=== PATIENT | female | born 1980 | race Caucasian/White ===

== ENCOUNTER 2022-06-19 15:00 | Emergency (ER) | payer OTHER, SELFPAY ==
[2022-06-19] VITALS (13 sets, daily range): BP systolic 124–142; BP diastolic 72–93; PULSE 90–103; RESP 18–30; TEMP 36.9; O2SAT 97–100; BMI 38.6
[2022-06-19 15:53] LABS: Add Manual Diff / Slide Review NO; Basophils Absolute Auto 100 /uL (0-100); Basophils Percent Auto 0.7 % (0-2); Eosinophils Absolute Auto 0 /uL (0-450); Hematocrit 44.5 % (36-46); Hemoglobin 15.3 g/dL (12.0-16.0); Lymphocytes Absolute Auto 2600 /uL (1100-4500); Lymphocytes Percent Auto 26.4 % (25-40); Mean Corpuscular HGB Conc 34.4 % (30-36); Mean Corpuscular Hemoglobin 28.6 PG (26-34); Mean Corpuscular Volume 83.1 fL (80-100); Monocytes Absolute Auto 700 /uL (0-900); Monocytes Percent Auto 7.2 % (3-14); Neutrophils Absolute Auto 6500 /uL (1500-7000); Neutrophils Percent Auto 65.7 % (50-75); Platelet Count 323 X10^3/uL (150-400); Red Blood Cell Count 5.35 X10^6/uL (4.0-5.2); Red Cell Distribution Width 13.4 % (11.6-14.8); White Blood Cell Count 9.9 X10^3/uL (4.5-11.0)
[2022-06-19 15:58] LABS: Bacteria Urine Moderate (10-30); Culture Indicated Urine Cult Not Indicated; RBC Urine None Seen (0-5/HPF); Squamous Epithelial Cell Urine 1-5 /HPF (0-5/HPF); WBC Urine 0-1/HPF (0-5/HPF)
[2022-06-19 16:08] LABS: Alanine Aminotransferase 21 IU/L (<35); Alkaline Phosphatase 128 U/L (38-126); Aspartate Aminotransferase 22 IU/L (14-36); BUN Creatinine Ratio 16.7 (6-22); Bilirubin Total 0.2 mg/dL (0.2-1.3); Blood Urea Nitrogen 13 mg/dL (7-17); Calcium 8.9 mg/dL (8.4-10.2); Carbon Dioxide 27 mmol/L (22-32); Chloride 104 mmol/L (98-107); Estimated Glomerular Filt Rate > 60 mL/min (>60); Globulin 3.9 g/dL (1.7-4.1); Glucose 99 mg/dL (70-100); HEMOLYSIS < 15 (0-50); Lipase 169 U/L (23-300); Potassium 4.7 mmol/L (3.4-5.1); Sodium 139 mmol/L (137-145); Total Protein 7.9 g/dL (6.3-8.2)
[2022-06-19] MEDS: ONDANSETRON 4 MG/2 ML INJ IV (17:58)
[2022-06-19] MEDS: KETOROLAC 30 MG/ML VIAL 15 MG IV (17:58)
--- NOTE | 2022-06-19 18:01 | DI.CT.S_ITS ---
PROCEDURE: CT ANGIO CHEST PE PROTOCOL INDICATIONS: concern for PE, LUQ PAIN TECHNIQUE: After the administration of intravenous contrast, 2 mm thick sections acquired from the pulmonary apices to the posterior costophrenic angles. 3-dimensional maximum intensity projection (MIP) coronal and sagittal reformats were then acquired through the thorax. For radiation dose reduction, the following was used: automated exposure control, adjustment of mA and/or kV according to patient size. COMPARISON: None. FINDINGS: Pulmonary arteries: Pulmonary arteries are normal in size, and demonstrate no intraluminal filling defects to suggest central pulmonary embolism. Lungs and pleura: Lungs are clear. No pleural effusions or pneumothorax. Mediastinum: no pericardial effusion. No mediastinal or hilar adenopathy. Thoracic aorta is normal in caliber and enhancement. Esophagus is normal in caliber Bones and chest wall: Multilevel degenerative change of the visualized spine. No axillary or supraclavicular adenopathy. Abdomen: Cholelithiasis IMPRESSION: No pulmonary embolism visualized. Dictated by: Hugo Valdes M.D. on 06/19/2022 at 19:45 Approved by: Hugo Valdes M.D. on 06/19/2022 at 19:50
--- NOTE | 2022-06-19 18:07 | DI.CT.S_ITS ---
PROCEDURE: CT ABDOMEN PELVIS W CON INDICATIONS: luq TECHNIQUE: After the administration of intravenous contrast, axial sections acquired from the lung bases to the pubic symphysis. Coronal and sagittal reformats were performed. For radiation dose reduction, the following was used: automated exposure control, adjustment of mA and/or kV according to patient size. COMPARISON: [facility], CT, CT KUB, 01/30/2018, 14:10. FINDINGS: Lung bases: No pleural effusion ABDOMEN: Liver: Unremarkable. Gallbladder: Multiple gallstones are present Biliary ducts: Unremarkable. Pancreas: Unremarkable. Spleen: Unremarkable. Adrenal Glands: Unremarkable. Kidneys and Ureters: Unremarkable. Stomach and Bowel: No bowel obstruction. No evidence of acute appendicitis Peritoneum: No abnormal intraperitoneal fluid. No free air. . Abdominal Nodes: No retroperitoneal or mesenteric adenopathy by size criteria. Vessels: Aorta and inferior vena cava are normal in size. PELVIS: Pelvic Organs: Unremarkable. Bladder: Unremarkable. Pelvic Nodes: No enlarged lymph nodes. Bones: Multilevel degenerative change of the visualized spine. IMPRESSION: Cholelithiasis. Dictated by: Hugo Valdes M.D. on 06/19/2022 at 19:40 Approved by: Hugo Valdes M.D. on 06/19/2022 at 19:44
--- NOTE | 2022-06-19 18:49 | ED.ABDPAIN ---
HPI - Abdominal Pain <Kings Alcantara PA-C - Last Filed: 06/20/22 20:54> General Chief Complaint: Abdominal Pain Stated Complaint: severe pain lt side of abdomen Time Seen by Provider: 06/19/22 17:31 Source: patient Mode of arrival: Ambulatory History of Present Illness HPI narrative: 42-year-old female with no reported past medical history presents to the ED with left upper abdominal and back pain for 10 days. Patient endorses that the pain worsens with movement. Pain is not inspiration. Pain is not aggravated by eating. Patient denies fever, chills, chest pain, shortness of breath, nausea, vomiting, dysuria, lightheadedness, dizziness, syncope. Patient denies history of gallstones. Endorses prior history of nephrolithiasis. Related Data Allergies Allergy/AdvReac Type Severity Reaction Status Date / Time No Known Drug Allergies Allergy Verified 06/19/22 15:11 Review of Systems <Kings Alcantara PA-C - Last Filed: 06/20/22 20:54> Review of Systems ROS Unobtainable: All systems reviewed & are unremarkable except as noted in HPI and below Constitutional Constitutional: Denies chills, Denies fatigue, Denies fever(s), Denies frequent falls, Denies lethargy and Denies weakness Eyes Eyes: Denies change in vision, Denies eye discharge, Denies irritation and Denies loss of vision ENT Ears, Nose, Mouth, and Throat: Denies change in voice, Denies dizziness, Denies neck pain, Denies sore throat and Denies throat swelling Cardiovascular Cardiovascular: Denies chest pain, Denies irregular heart rhythm, Denies lightheadedness, Denies palpitations, Denies dyspnea, Denies dyspnea on exertion and Denies orthopnea Respiratory Respiratory: Denies cough, Denies dyspnea, Denies dyspnea on exertion and Denies wheezing Gastrointestinal Gastrointestinal: Reports abdominal pain, Denies change in bowel habits, Denies diarrhea, Denies nausea and Denies vomiting Genitourinary Genitourinary: Denies hematuria, Denies flank pain, Denies urinary incontinence and Denies urinary urgency Musculoskeletal Musculoskeletal: Reports back pain, Denies muscle weakness, Denies neck pain, Denies numbness and Denies tingling Integumentary/Breasts Skin/Breast: Denies pruritus, Denies erythema, Denies rash and Denies wounds Neurologic Neurologic: Denies behavioral changes, Denies confusion, Denies dizziness, Denies frequent falls, Denies loss of vision, Denies numbness, Denies tingling and Denies weakness Psychiatric Psychiatric: Denies anxiety, Denies behavioral changes, Denies confusion, Denies depression, Denies homicidal ideation and Denies suicidal ideation Endocrine Endocrine: Denies fatigue, Denies flushing and Denies palpitations Hematologic/Lymphatic Hematologic/Lymphatic: Denies easy bruising Allergic/Immunologic Allergic/Immunologic: Denies urticaria, Denies throat swelling and Denies wheezing Patient History <Kings Alcantara PA-C - Last Filed: 06/20/22 20:54> Social History Smoking Status: Never smoker Smoking Status: Never smoker alcohol intake frequency: holidays/special occasions only Substance Use Type: does not use Exam <Kings Alcantara PA-C - Last Filed: 06/20/22 20:54> Narrative Exam Narrative: Const General:?cooperative, healthy appearing and comfortable [facility] Head:?normal to inspection Ears:?hearing grossly normal bilaterally Nose:?external nose normal Face and sinus:?normal facial exam and sinuses nontender Mouth:?oral mucosae normal Throat:?posterior oropharynx normal Eyes General:?appearance normal, both eyes and all related structures Neck Neck:?normal visual inspection and no lymphadenopathy noted Resp Effort & Inspection:?normal respiratory effort Auscultation:?clear to auscultation bilaterally Cardio Rate:?regular rate Rhythm:?regular rhythm GI There is tenderness to palpation of lateral left upper quadrant. Physical exam is more consistent with musculoskeletal sprain/strain. Abdomen is soft, nondistended. Neuro General:?patient alert, patient awake and patient oriented x3 Initial Vital Signs Initial Vital Signs: Vital Signs Temperature 98.4 F 06/19/22 15:11 Pulse Rate 90 06/19/22 15:11 Respiratory Rate 18 06/19/22 15:11 Blood Pressure 133/87 06/19/22 15:11 Pulse Oximetry 100 06/19/22 15:11 Oxygen Delivery Method Room Air 06/19/22 15:11 <Daniel Wilder DO - Last Filed: 06/22/22 18:01> Initial Vital Signs Initial Vital Signs: Vital Signs Temperature 98.4 F 06/19/22 15:11 Pulse Rate 90 06/19/22 15:11 Respiratory Rate 18 06/19/22 15:11 Blood Pressure 133/87 06/19/22 15:11 Pulse Oximetry 100 06/19/22 15:11 Oxygen Delivery Method Room Air 06/19/22 15:11 Course <Kings Alcantara PA-C - Last Filed: 06/20/22 20:54> Orders Ordered: Discontinued Medications Ketorolac Tromethamine (Ketorolac 30 Mg/Ml Vial) 15 mg IV NOW ONE Stop: 06/19/22 17:50 Last Admin: 06/19/22 17:58 Dose: 15 mg Documented By: GENNY Ondansetron HCl (Ondansetron 4 Mg Odt) 4 mg PO NOW PRN PRN Reason: Nausea And Vomiting Ondansetron HCl (Ondansetron 4 Mg/2 Ml Inj) 4 mg IV NOW PRN PRN Reason: Nausea And Vomiting Last Admin: 06/19/22 17:58 Dose: 4 mg Documented By: GENNY Vital Signs Vital signs: Vital Signs - 8 hr 06/19/22 15:11 06/19/22 17:36 06/19/22 17:37 Temperature 98.4 F Pulse Rate 90 101 H Respiratory Rate 18 22 Blood Pressure 133/87 124/72 Pulse Oximetry 100 100 Oxygen Delivery Method Room Air 06/19/22 17:37 06/19/22 17:45 06/19/22 17:45 Temperature Pulse Rate 103 H 102 H Respiratory Rate 24 23 Blood Pressure 142/93 H Pulse Oximetry 100 100 Oxygen Delivery Method 06/19/22 18:00 06/19/22 18:00 06/19/22 18:01 Temperature Pulse Rate 102 H 97 H Respiratory Rate 23 24 Blood Pressure 133/85 Pulse Oximetry 99 99 Oxygen Delivery Method 06/19/22 18:01 06/19/22 18:15 06/19/22 18:15 Temperature Pulse Rate 101 H Respiratory Rate 24 Blood Pressure 126/79 127/82 Pulse Oximetry 97 Oxygen Delivery Method 06/19/22 18:39 Temperature Pulse Rate 99 H Respiratory Rate 23 Blood Pressure Pulse Oximetry 99 Oxygen Delivery Method <Daniel Wilder DO - Last Filed: 06/22/22 18:01> Orders Ordered: Discontinued Medications Ketorolac Tromethamine (Ketorolac 30 Mg/Ml Vial) 15 mg IV NOW ONE Stop: 06/19/22 17:50 Last Admin: 06/19/22 17:58 Dose: 15 mg Documented By: GENNY Ondansetron HCl (Ondansetron 4 Mg Odt) 4 mg PO NOW PRN PRN Reason: Nausea And Vomiting Ondansetron HCl (Ondansetron 4 Mg/2 Ml Inj) 4 mg IV NOW PRN PRN Reason: Nausea And Vomiting Last Admin: 06/19/22 17:58 Dose: 4 mg Documented By: GENNY Vital Signs Vital signs: Vital Signs - 8 hr 06/19/22 15:11 06/19/22 17:36 06/19/22 17:37 Temperature 98.4 F Pulse Rate 90 101 H Respiratory Rate 18 22 Blood Pressure 133/87 124/72 Pulse Oximetry 100 100 Oxygen Delivery Method Room Air 06/19/22 17:37 06/19/22 17:45 06/19/22 17:45 Temperature Pulse Rate 103 H 102 H Respiratory Rate 24 23 Blood Pressure 142/93 H Pulse Oximetry 100 100 Oxygen Delivery Method 06/19/22 18:00 06/19/22 18:00 06/19/22 18:01 Temperature Pulse Rate 102 H 97 H Respiratory Rate 23 24 Blood Pressure 133/85 Pulse Oximetry 99 99 Oxygen Delivery Method 06/19/22 18:01 06/19/22 18:15 06/19/22 18:15 Temperature Pulse Rate 101 H Respiratory Rate 24 Blood Pressure 126/79 127/82 Pulse Oximetry 97 Oxygen Delivery Method 06/19/22 18:39 Temperature Pulse Rate 99 H Respiratory Rate 23 Blood Pressure Pulse Oximetry 99 Oxygen Delivery Method MDM - Abdominal Pain <Hyma OSMAR Alcantara - Last Filed: 06/20/22 20:54> Lab Data 06/19/22 15:30 06/19/22 15:30 Labs: Lab Results 06/19/22 06/19/22 06/19/22 Range/Units 15:20 15:30 15:30 WBC 9.9 (4.5-11.0) X10^3/uL RBC 5.35 H (4.0-5.2) X10^6/uL Hgb 15.3 (12.0-16.0) g/dL Hct 44.5 (36-46) % MCV 83.1 (80-100) fL MCH 28.6 (26-34) PG MCHC 34.4 (30-36) % RDW 13.4 (11.6-14.8) % Plt Count 323 (150-400) X10^3/uL Neut % (Auto) 65.7 (50-75) % Lymph % (Auto) 26.4 (25-40) % [place] % (Auto) 7.2 (3-14) % Eos % (Auto) 0.0 L (2-4) % Baso % (Auto) 0.7 (0-2) % Neut # (Auto) 6500 (4367-3132) /uL Lymph # (Auto) 2600 (2819-9588) /uL [place] # (Auto) 700 (0-900) /uL Eos # (Auto) 0 (0-450) /uL Baso # (Auto) 100 (0-100) /uL Sodium 139 (137-145) mmol/L Potassium 4.7 (3.4-5.1) mmol/L Chloride 104 (98-107) mmol/L Carbon Dioxide 27 (22-32) mmol/L BUN 13 (7-17) mg/dL Creatinine 0.78 (0.52-1.04) mg/dL Estimated GFR > 60 (>60) mL/min BUN/Creatinine Ratio 16.7 (6-22) Glucose 99 (70-100) mg/dL Calcium 8.9 (8.4-10.2) mg/dL Total Bilirubin 0.2 (0.2-1.3) mg/dL AST 22 (14-36) IU/L ALT 21 (<35) IU/L Alkaline Phosphatase 128 H (38-126) U/L Total Protein 7.9 (6.3-8.2) g/dL Albumin 4.0 (3.5-5.0) g/dL Globulin 3.9 (1.7-4.1) g/dL Albumin/Globulin Ratio 1.0 (1.0-2.8) Lipase 169 (23-300) U/L Urine RBC None seen (0-5/HPF) Urine WBC 0-1/hpf (0-5/HPF) Ur Squamous Epith Cells 1-5 /hpf (0-5/HPF) Urine Bacteria Moderate (10-30) H (None) Ur Culture Indicated? Cult not indicated Point of care testing: Point of Care Testing Test Results Negative Urine Dip Bedside Urine Glucose Negative Bedside Urine Bilirubin - Negative Bedside Urine Ketone - Negative Urine Specific [place] 1.015 Bedside Urine Occult Blood +/- Bedside Urine pH 6.5 Bedside Urine Protein - Negative Bedside Urine Urobilinogen - Negative Bedside Urine Nitrite - Negative Bedside Urine Leukocytes - Negative Esterase MDM Narrative Medical decision making narrative: 42-year-old female with no reported past medical history presents to the ED with left upper abdominal and back pain for 10 days. Concern for intra-abdominal pathology versus UTI versus PE. Obtain labs, UA, CT abdomen pelvis, CT PE. Workup was largely unremarkable. CT abdomen pelvis shows some cholelithiasis without cholecystitis. CT PE negative for PE. Labs within normal limits. UA without UTI. Discussed findings with patient. Patient states that her symptoms improved with ketorolac. Patient's symptoms likely due to musculoskeletal sprain/strain. Recommend continued use of ibuprofen, Tylenol. ED return precautions were discussed with patient. Patient verbalized understanding. Medical records reviewed: Yes <Daniel Wilder DO - Last Filed: 06/22/22 18:01> Lab Data Labs: Lab Results 06/19/22 06/19/22 06/19/22 Range/Units 15:20 15:30 15:30 WBC 9.9 (4.5-11.0) X10^3/uL RBC 5.35 H (4.0-5.2) X10^6/uL Hgb 15.3 (12.0-16.0) g/dL Hct 44.5 (36-46) % MCV 83.1 (80-100) fL MCH 28.6 (26-34) PG MCHC 34.4 (30-36) % RDW 13.4 (11.6-14.8) % Plt Count 323 (150-400) X10^3/uL Neut % (Auto) 65.7 (50-75) % Lymph % (Auto) 26.4 (25-40) % [place] % (Auto) 7.2 (3-14) % Eos % (Auto) 0.0 L (2-4) % Baso % (Auto) 0.7 (0-2) % Neut # (Auto) 6500 (3412-1585) /uL Lymph # (Auto) 2600 (3971-4434) /uL [place] # (Auto) 700 (0-900) /uL Eos # (Auto) 0 (0-450) /uL Baso # (Auto) 100 (0-100) /uL Sodium 139 (137-145) mmol/L Potassium 4.7 (3.4-5.1) mmol/L Chloride 104 (98-107) mmol/L Carbon Dioxide 27 (22-32) mmol/L BUN 13 (7-17) mg/dL Creatinine 0.78 (0.52-1.04) mg/dL Estimated GFR > 60 (>60) mL/min BUN/Creatinine Ratio 16.7 (6-22) Glucose 99 (70-100) mg/dL Calcium 8.9 (8.4-10.2) mg/dL Total Bilirubin 0.2 (0.2-1.3) mg/dL AST 22 (14-36) IU/L ALT 21 (<35) IU/L Alkaline Phosphatase 128 H (38-126) U/L Total Protein 7.9 (6.3-8.2) g/dL Albumin 4.0 (3.5-5.0) g/dL Globulin 3.9 (1.7-4.1) g/dL Albumin/Globulin Ratio 1.0 (1.0-2.8) Lipase 169 (23-300) U/L Urine RBC None seen (0-5/HPF) Urine WBC 0-1/hpf (0-5/HPF) Ur Squamous Epith Cells 1-5 /hpf (0-5/HPF) Urine Bacteria Moderate (10-30) H (None) Ur Culture Indicated? Cult not indicated Point of care testing: Point of Care Testing Test Results Negative Urine Dip Bedside Urine Glucose Negative Bedside Urine Bilirubin - Negative Bedside Urine Ketone - Negative Urine Specific [place] 1.015 Bedside Urine Occult Blood +/- Bedside Urine pH 6.5 Bedside Urine Protein - Negative Bedside Urine Urobilinogen - Negative Bedside Urine Nitrite - Negative Bedside Urine Leukocytes - Negative Esterase Discharge Plan Departure Patient Disposition: Home Clinical Impression: Abdominal pain Instructions: DI for Abdominal Pain-Adult, DI for Abdominal Muscle Strain Activity Restrictions/Additional Instructions: You were evaluated in the ED today for left-sided abdominal and side pain. Your labs, urine were normal. Your CT showed multiple gallstones, however none of them were blocking such as to cause symptoms. Your spleen was normal. Your CT chest did not show any blood clots. Your symptoms could likely be due to a musculoskeletal sprain/strain. You may continue to take ibuprofen 800 mg 3 times a day with food. You may also take Tylenol along with it. Please monitor your symptoms and return to the ED if you have worsening pain despite taking the pain medications, you experience persistent vomiting, fever, chills. Please follow-up with your PCP as soon as possible. Referrals: Chyna Cuellar MD [Primary Care Provider] - Stand Alone Forms: Patient Portal/API <Daniel Wilder, - Last Filed: 06/22/22 18:01> Cosign ED Attending Cosignature Attestation: Dr Wilder Co-Sign Statement: I was available for consultation during this patient's emergency department visit. This chart is signed by myself for administrative purposes only. I did not have direct contact with this patient during this visit. They were seen independently by the APC.
== END 2022-06-19 20:21 | disposition home or self-care (01) ==
PROVIDERS: Emergency Medicine; Emergency Provider Student in an Organized Health Care Education/Training Program; PCP Family Medicine
DX: R10.12 Left upper quadrant pain (principal); K80.20 Calculus of gallbladder without cholecystitis without obstruction
CPT/HCPCS: 36415; 71275; 74177; 80053; 81003; 81015; 81025; 83690; 85025; 93005; 93010; 96374; 96375; 99284; J1885; J2405

== ENCOUNTER → 2022-12-18 14:49 | Outpatient (CLI) | payer OTHER, SELFPAY ==
[2022-12-18 15:21] LABS: Add Manual Diff / Slide Review NO; Basophils Absolute Auto 0 /uL (0-100); Basophils Percent Auto 0.3 % (0-2); Eosinophils Absolute Auto 0 /uL (0-450); Hematocrit 40.6 % (36-46); Hemoglobin 13.9 g/dL (12.0-16.0); Lymphocytes Absolute Auto 1800 /uL (1100-4500); Mean Corpuscular HGB Conc 34.3 % (30-36); Mean Corpuscular Volume 84.5 fL (80-100); Monocytes Absolute Auto 500 /uL (0-900); Neutrophils Absolute Auto 5700 /uL (1500-7000); Neutrophils Percent Auto 71.7 % (50-75); Platelet Count 293 X10^3/uL (150-400); Red Cell Distribution Width 12.7 % (11.6-14.8)
[2022-12-18 15:47] LABS: Alanine Aminotransferase 16 IU/L (<35); Albumin 3.8 g/dL (3.5-5.0); Albumin Globulin Ratio 1.2 (1.0-2.8); Alkaline Phosphatase 104 U/L (38-126); Aspartate Aminotransferase 19 IU/L (14-36); BUN Creatinine Ratio 11.8 (6-22); Bilirubin Total 0.1 mg/dL (0.2-1.3); Blood Urea Nitrogen 10 mg/dL (7-17); Calcium 9.2 mg/dL (8.4-10.2); Carbon Dioxide 26 mmol/L (22-32); Chloride 105 mmol/L (98-107); Estimated Glomerular Filt Rate > 60 mL/min (>60); Globulin 3.2 g/dL (1.7-4.1); Glucose 126 mg/dL (70-100); HEMOLYSIS < 15 (0-50); Potassium 4.3 mmol/L (3.4-5.1); Sodium 138 mmol/L (137-145)
[2022-12-18 16:37] LABS: TSH w/ Reflex to FT4 1.49 uIU/mL (0.47-4.68)
== END ==
PROVIDERS: PCP Student in an Organized Health Care Education/Training Program; Referring Provider Student in an Organized Health Care Education/Training Program; Visit Provider Student in an Organized Health Care Education/Training Program
DX: I10 Essential (primary) hypertension (principal)
CPT/HCPCS: 36415; 80053; 84443; 85025

== ENCOUNTER → 2023-01-19 08:17 | Outpatient (CLI) | payer OTHER, SELFPAY ==
--- NOTE | 2023-01-19 08:18 | DI.MG.S_ITS ---
BILATERAL DIGITAL SCREENING MAMMOGRAM 3D/2D WITH CAD: 01/19/2023 CLINICAL: Routine screening. Comparison is made to exam dated: 02/17/2018 mammogram - outside location. Both breasts are heterogeneously dense, which may obscure small masses (category c / 51-75% glandular tissue). Current study was also evaluated with a Computer Aided Detection (CAD) system. There are benign appearing cysts in both breasts. There is a focal asymmetry in the left breast at 1 o'clock middle depth. This is more prominent. No other significant masses, calcifications, or other findings are seen in either breast. IMPRESSION: INCOMPLETE: NEEDS ADDITIONAL IMAGING EVALUATION The focal asymmetry in the left breast is indeterminate. Additional views with possible ultrasound are recommended. This may represent cyst(s) that are larger than prior. Based on the Tyrer Cuzick model (a risk assessment model) the patient's lifetime risk is 16.2% and her 10 year risk is 2.2%. According to the ACR, ACS, and NCCN guidelines, an annual breast MRI exam along with mammogram is recommended if the patient's lifetime risk is 20% or greater. This exam was interpreted at Station ID: [id number]. NOTE: For mammograms, a report in lay terms will be sent to the patient. Approximately 15% of breast malignancies will not be visualized mammographically. In the management of a palpable breast mass, a negative mammogram must not discourage biopsy of a clinically suspicious lesion. Electronically Signed By: Armand Hines M.D. lc/:01/31/2023 14:12:07 letter sent: Additional Imaging Needed ACR BI-RADS Category 0: Incomplete 3340F
== END ==
PROVIDERS: PCP Student in an Organized Health Care Education/Training Program; Referring Provider Student in an Organized Health Care Education/Training Program; Visit Provider Student in an Organized Health Care Education/Training Program
DX: Z12.31 Encounter for screening mammogram for malignant neoplasm of breast (principal); N64.89 Other specified disorders of breast
CPT/HCPCS: 77063; 77067

== ENCOUNTER → 2023-02-21 09:24 | Outpatient (CLI) | payer OTHER, SELFPAY ==
--- NOTE | 2023-02-21 09:24 | DI.US.S_ITS ---
ULTRASOUND OF LEFT BREAST: 02/21/2023 CLINICAL: Patient returns today to evaluate an asymmetry in the left breast. Comparison is made to exams dated: 02/21/2023 mammogram, 01/19/2023 mammogram - [facility], and 02/17/2018 mammogram - outside location. Color flow and real-time ultrasound of the left breast were performed. Davey scale images of the real-time examination were reviewed. There is a benign cluster of micro cysts in the left breast at 1 o'clock middle depth 8 cm from the nipple. This correlates with mammography findings. The largest measures 1.3 x 1.1cm. IMPRESSION: BENIGN There is no sonographic evidence of malignancy. The cluster of micro cysts in the left breast is consistent with apocrine metaplasia and is benign. Return to annual mammogram screening schedule is recommended. This exam was interpreted at Station ID: [id number]. Electronically Signed By: Armand Hines M.D. lc/:02/21/2023 10:23:08 letter sent: Normal Exam Ultrasound BI-RADS: 2 Benign
--- NOTE | 2023-02-21 09:24 | DI.MG.S_ITS ---
UNILATERAL LEFT DIGITAL DIAGNOSTIC MAMMOGRAM 3D/2D WITH ADDITIONAL VIEWS: 02/21/2023 CLINICAL: Additional evaluation requested from prior study. Comparison is made to exams dated: 02/17/2018 mammogram - outside location and 01/19/2023 mammogram - [facility]. The left breast is heterogeneously dense, which may obscure small masses (category c / 51-75% glandular tissue). There are benign appearing cysts in the left breast. There is a cluster of focal asymmetries in the left breast at 1 o'clock middle depth. This is more prominent. No other significant masses or calcifications are seen in the breast. IMPRESSION: INCOMPLETE: NEEDS ADDITIONAL IMAGING EVALUATION The cluster of focal asymmetries in the left breast is indeterminate. An ultrasound is recommended. Based on the Tyrer Cuzick model (a risk assessment model) the patient's lifetime risk is 16.1% and her 10 year risk is 2.4%. According to the ACR, ACS, and NCCN guidelines, an annual breast MRI exam along with mammogram is recommended if the patient's lifetime risk is 20% or greater. This exam was interpreted at Station ID: [id number]. NOTE: For mammograms, a report in lay terms will be sent to the patient. Approximately 15% of breast malignancies will not be visualized mammographically. In the management of a palpable breast mass, a negative mammogram must not discourage biopsy of a clinically suspicious lesion. Electronically Signed By: Armand Hines M.D. lc/:02/21/2023 10:21:30 ACR BI-RADS Category 0: Incomplete 3340F
== END ==
PROVIDERS: PCP Student in an Organized Health Care Education/Training Program; Referring Provider Student in an Organized Health Care Education/Training Program; Visit Provider Student in an Organized Health Care Education/Training Program
DX: R92.8 Other abnormal and inconclusive findings on diagnostic imaging of breast (principal); N64.89 Other specified disorders of breast
CPT/HCPCS: 76642; 77065; G0279

== ENCOUNTER → 2023-03-13 06:49 | Outpatient (CLI) | payer OTHER, SELFPAY ==
--- NOTE | 2023-03-13 06:50 | DI.US.S_ITS ---
PROCEDURE: US ABDOMEN LIMITED INDICATIONS: RIGHT UPPER QUADRANT PAIN. KNOWN CHOLELITHIASIS. TECHNIQUE: Real-time focused scanning was performed of the abdomen, with image documentation. COMPARISON: CT, CT ABDOMEN PELVIS W CON, 06/19/2022, 18:19. FINDINGS: Liver demonstrates mild steatosis. Multiple foci of increased echogenicity are present within the gallbladder. Wall thickness is normal measuring 2.2 mm. Common bile duct is slightly prominent measuring 8.8 mm. IMPRESSION: Cholelithiasis without wall thickening. Dictated by: Althea Johnson M.D. on 03/13/2023 at 8:39 Approved by: Althea Johnson M.D. on 03/13/2023 at 8:40
[2023-03-13 07:40] LABS: Add Manual Diff / Slide Review NO; Basophils Absolute Auto 0 /uL (0-100); Basophils Percent Auto 0.5 % (0-2); Eosinophils Absolute Auto 0 /uL (0-450); Eosinophils Percent Auto 0.1 % (2-4); Hemoglobin 14.4 g/dL (12.0-16.0); Lymphocytes Absolute Auto 1900 /uL (1100-4500); Lymphocytes Percent Auto 27.8 % (25-40); Mean Corpuscular HGB Conc 34.4 % (30-36); Mean Corpuscular Hemoglobin 28.8 PG (26-34); Mean Corpuscular Volume 83.9 fL (80-100); Monocytes Absolute Auto 400 /uL (0-900); Monocytes Percent Auto 6.1 % (3-14); Neutrophils Absolute Auto 4600 /uL (1500-7000); Neutrophils Percent Auto 65.5 % (50-75); Platelet Count 297 X10^3/uL (150-400); Red Blood Cell Count 5.01 X10^6/uL (4.0-5.2)
[2023-03-13 07:41] LABS: Appearance Urine UA CLEAR; Bilirubin Urine UA 1+ (NEGATIVE); Color Urine UA YELLOW; Glucose Urine UA NEGATIVE (Negative); Ketones Urine UA 1+ (NEGATIVE); Leukocyte Esterase Urine UA NEGATIVE (NEGATIVE); Nitrite Urine UA NEGATIVE (Negative); Occult Blood Urine UA NEGATIVE (Negative); Protein Urine UA TRACE (Negative); Specific Gravity Urine UA 1.025 (1.000-1.035)
[2023-03-13 07:45] LABS: Bacteria Urine Many (>30); Culture Indicated Urine Specimen Cultured; RBC Urine None Seen (0-5/HPF); Squamous Epithelial Cell Urine 1-5 /HPF (0-5/HPF); WBC Urine 1-5/HPF (0-5/HPF)
[2023-03-13 07:52] LABS: Alanine Aminotransferase 14 IU/L (<35); Albumin 3.8 g/dL (3.5-5.0); Albumin Globulin Ratio 1.2 (1.0-2.8); Alkaline Phosphatase 115 U/L (38-126); Aspartate Aminotransferase 16 IU/L (14-36); BUN Creatinine Ratio 16.9 (6-22); Bilirubin Total 0.5 mg/dL (0.2-1.3); Blood Urea Nitrogen 14 mg/dL (7-17); Calcium 9.5 mg/dL (8.4-10.2); Carbon Dioxide 28 mmol/L (22-32); Chloride 104 mmol/L (98-107); Estimated Glomerular Filt Rate > 60 mL/min (>60); Globulin 3.2 g/dL (1.7-4.1); Glucose 111 mg/dL (70-100); HEMOLYSIS < 15 (0-50); Sodium 138 mmol/L (137-145)
== END ==
LOC: US 06:49
PROVIDERS: PCP Student in an Organized Health Care Education/Training Program; Referring Provider Student in an Organized Health Care Education/Training Program; Visit Provider Student in an Organized Health Care Education/Training Program
DX: K80.20 Calculus of gallbladder without cholecystitis without obstruction (principal); R10.11 Right upper quadrant pain
CPT/HCPCS: 36415; 76705; 80053; 81001; 85025; 87086

== ENCOUNTER → 2023-07-08 14:33 | Outpatient (CLI) | payer OTHER, SELFPAY ==
[2023-07-08 15:35] LABS: Add Manual Diff / Slide Review NO; Basophils Absolute Auto 0 /uL (0-100); Basophils Percent Auto 0.1 % (0-2); Eosinophils Absolute Auto 0 /uL (0-450); Eosinophils Percent Auto 0.1 % (2-4); Hematocrit 42.6 % (36-46); Hemoglobin 14.6 g/dL (12.0-16.0); Lymphocytes Absolute Auto 2500 /uL (1100-4500); Lymphocytes Percent Auto 31.5 % (25-40); Mean Corpuscular HGB Conc 34.2 % (30-36); Mean Corpuscular Hemoglobin 28.7 PG (26-34); Mean Corpuscular Volume 83.8 fL (80-100); Monocytes Absolute Auto 600 /uL (0-900); Monocytes Percent Auto 7.5 % (3-14); Neutrophils Absolute Auto 4800 /uL (1500-7000); Neutrophils Percent Auto 60.8 % (50-75); Platelet Count 289 X10^3/uL (150-400); Red Blood Cell Count 5.09 X10^6/uL (4.0-5.2)
[2023-07-08 15:43] LABS: Hemoglobin A1C% w Est Avg Glu 5.8 % (4.0-6.0)
[2023-07-08 16:22] LABS: Alanine Aminotransferase 19 IU/L (<35); Albumin 3.9 g/dL (3.5-5.0); Albumin Globulin Ratio 1.3 (1.0-2.8); Alkaline Phosphatase 135 U/L (38-126); Aspartate Aminotransferase 20 IU/L (14-36); BUN Creatinine Ratio 14.8 (6-22); Bilirubin Total 0.4 mg/dL (0.2-1.3); Blood Urea Nitrogen 12 mg/dL (7-17); Calcium 9.4 mg/dL (8.4-10.2); Carbon Dioxide 33 mmol/L (22-32); Chloride 102 mmol/L (98-107); Cholesterol 229 mg/dL (140-199); Estimated Glomerular Filt Rate > 60 mL/min (>60); Glucose 114 mg/dL (70-100); HDL Cholesterol 68 mg/dL (40-60); HEMOLYSIS < 15 (0-50); LDL Cholesterol Calculated 97 mg/dL (<100); Potassium 3.7 mmol/L (3.4-5.1); Sodium 138 mmol/L (137-145); Total Protein 6.9 g/dL (6.3-8.2); Triglycerides 321 mg/dL (35-150)
== END ==
PROVIDERS: PCP Student in an Organized Health Care Education/Training Program; Referring Provider Student in an Organized Health Care Education/Training Program; Visit Provider Student in an Organized Health Care Education/Training Program
DX: Z13.1 Encounter for screening for diabetes mellitus (principal); I10 Essential (primary) hypertension; R53.1 Weakness
CPT/HCPCS: 36415; 80053; 80061; 83036; 85025

== ENCOUNTER 2024-06-28 14:46 | Emergency (ER) | payer OTHER, SELFPAY ==
[2024-06-28] VITALS (13 sets, daily range): BP systolic 118–135; BP diastolic 68–92; PULSE 80–91; RESP 13–39; TEMP 36.6; O2SAT 93–100; BMI 37.3
--- NOTE | 2024-06-28 14:55 | EKG_ITS ---
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
[2024-06-28 15:12] LABS: Add Manual Diff / Slide Review NO; Basophils Absolute Auto 100 /uL (0-100); Basophils Percent Auto 0.5 % (0-2); Eosinophils Absolute Auto 0 /uL (0-450); Eosinophils Percent Auto 0.1 % (2-4); Hematocrit 42.2 % (36-46); Hemoglobin 14.6 g/dL (12.0-16.0); Lymphocytes Absolute Auto 2800 /uL (1100-4500); Lymphocytes Percent Auto 29.4 % (25-40); Mean Corpuscular HGB Conc 34.7 % (30-36); Mean Corpuscular Hemoglobin 28.9 PG (26-34); Mean Corpuscular Volume 83.5 fL (80-100); Monocytes Absolute Auto 600 /uL (0-900); Monocytes Percent Auto 6.5 % (3-14); Neutrophils Absolute Auto 6000 /uL (1500-7000); Neutrophils Percent Auto 63.5 % (50-75); Platelet Count 286 X10^3/uL (150-400); Red Blood Cell Count 5.06 X10^6/uL (4.0-5.2); Red Cell Distribution Width 13.2 % (11.6-14.8); White Blood Cell Count 9.4 X10^3/uL (4.5-11.0)
[2024-06-28 15:20] LABS: Alanine Aminotransferase 22 IU/L (<35); Albumin 4.1 g/dL (3.5-5.0); Albumin Globulin Ratio 1.4 (1.0-2.8); Alkaline Phosphatase 119 U/L (38-126); Aspartate Aminotransferase 21 IU/L (14-36); BUN Creatinine Ratio 15.1 (6-22); Bilirubin Total 0.4 mg/dL (0.2-1.3); Blood Urea Nitrogen 14 mg/dL (7-17); Calcium 9.7 mg/dL (8.4-10.2); Carbon Dioxide 30 mmol/L (22-32); Chloride 102 mmol/L (98-107); Estimated Glomerular Filt Rate > 60 mL/min (>60); Glucose 96 mg/dL (70-99); HEMOLYSIS < 15 (0-50); Lipase 226 U/L (23-300); Potassium 3.8 mmol/L (3.4-5.1); Sodium 138 mmol/L (137-145); Total Protein 7.1 g/dL (6.3-8.2)
[2024-06-28 18:03] LABS: Urine Volume 10mL (spun)
[2024-06-28 18:09] LABS: Amorphous Sediment Urine 4+; Bacteria Urine Few (2-10); Culture Indicated Urine Cult Not Indicated; RBC Urine None Seen (0-5/HPF); Squamous Epithelial Cell Urine 0-1 /HPF (0-5/HPF); WBC Urine None Seen (0-5/HPF)
--- NOTE | 2024-06-28 18:21 | DI.CT.S_ITS ---
PROCEDURE: CT ABDOMEN PELVIS W CON INDICATIONS: HCG neg, severe abd pain TECHNIQUE: After the administration of intravenous contrast, axial sections acquired from the lung bases to the pubic symphysis. Coronal and sagittal reformats were performed. For radiation dose reduction, the following was used: automated exposure control, adjustment of mA and/or kV according to patient size. COMPARISON: Merged With [facility], CT, CT ABDOMEN PELVIS W CON, 06/19/2022, 18:19. FINDINGS: Image quality: Diagnostic. Lower Chest: No significant findings. ABDOMEN: Liver: The liver is diffusely decreased in attenuation without focal mass lesion. Gallbladder: Cholelithiasis. No pericholecystic inflammatory change. Biliary ducts: No biliary dilation. Pancreas: No ductal dilation. Spleen: Size is within normal limits. Adrenal Glands: No adrenal nodules. Kidneys and Ureters: No hydronephrosis. No solid mass. No complex renal cystic lesion which requires follow up. Stomach and Bowel: Normal colonic caliber, without significant wall thickening. Peritoneum: No abnormal intraperitoneal fluid. No free air. Ventral Wall: No significant ventral hernia. Abdominal Nodes: No retroperitoneal or mesenteric adenopathy by size criteria. Vessels: Aorta and inferior vena cava are normal in size. PELVIS: Pelvic Organs: Bilateral ovarian cysts measure up to 5 cm on the left. No free fluid Bladder: No bladder wall thickening, accounting for underdistention. Pelvic Nodes: No enlarged lymph nodes. Miscellaneous: No inguinal hernias are seen. Bones: No aggressive osseous abnormality. IMPRESSION: No acute CT findings in the abdomen and pelvis Cholelithiasis without evidence of acute cholecystitis Left ovarian cyst. No free fluid Approved by: Kip Bradford M.D. on 06/28/2024 at 18:04
--- NOTE | 2024-06-28 18:57 | ED_ITS ---
HPI - General Adult General Chief complaint: Abdominal Pain Stated complaint: severe abd pain, vomiting Time Seen by Provider: 06/28/24 18:21 Mode of arrival: Ambulatory History of Present Illness HPI narrative: 44-year-old female with no history of previous abdominal surgeries, has epigastric area discomfort since 12/31 this morning, with subsequent nausea, later nonbloody emesis multiple episodes 2:00 p.m.. No history of gallbladder problems. No history of stomach ulcers recalled. No fevers or chills. No recent diarrhea. No recent exposure to antibiotics. No painful or frequent urination. No recent vaginal bleeding. Related Data Home Medications Medication Instructions Recorded Confirmed aripiprazole 2 mg tablet 2 mg PO DAILY Anxiety and 12/18/22 08/26/23 depression bupropion HCl 150 mg 24 hr tablet, 150 mg PO DAILY Depression 12/18/22 08/26/23 extended release bupropion HCl 300 mg 24 hr tablet, 300 mg PO DAILY Depression 12/18/22 08/26/23 extended release vilazodone 40 mg tablet 40 mg PO DAILY Depression 12/18/22 08/26/23 zolpidem 5 mg tablet 10 mg PO Insomnia 12/18/22 08/26/23 dextroamphetamine-amphetamine 20 40 mg PO BID Depression 03/12/23 08/26/23 mg tablet Previous Rx's Medication Instructions Recorded cephalexin 500 mg capsule 500 mg PO TID #21 caps 03/13/23 oxycodone 5 mg tablet 5 mg PO Q8H PRN pain #10 tabs 03/13/23 gabapentin 300 mg capsule 300 mg PO ONCE PM #30 caps 06/10/23 metformin 500 mg tablet 500 mg PO BID #60 tabs 08/26/23 amlodipine 5 mg tablet 5 mg PO DAILY #30 tabs 11/21/23 hydrochlorothiazide 12.5 mg tablet 12.5 mg PO DAILY #30 tabs 11/21/23 norethindrone 1 mg-ethinyl 1 tab PO DAILY #84 tabs 03/17/24 estradiol 20 mcg (21)-iron 75 mg (7) tablet ([place] Fe 1-20 EQ (28)) fluconazole 150 mg tablet 150 mg PO Q3D 2 doses #2 tabs 05/07/24 Allergies Allergy/AdvReac Type Severity Reaction Status Date / Time No Known Drug Allergies Allergy Verified 08/26/23 08:59 Patient History Medical History (Updated 06/28/24 @ 20:19 by Norbert Chang MD) Weakness Neck pain Nerve pain Social History marital status: unmarried,single number of children: 0 lives independently: Yes Smoking Status: Never smoker alcohol intake: never substance use type: does not use Smoking Status: Never smoker alcohol intake frequency: holidays/special occasions only Exam Narrative Exam Narrative: GENERAL: Well-developed patient, in mild distress. HEAD: Atraumatic. Normocephalic. EYES: Pupils equal round and reactive. Extraocular motions intact. No scleral icterus. No injection or drainage. ENT: Nose without bleeding, purulent drainage. Throat without erythema, tonsillar hypertrophy or exudate. Airway patent. NECK: Trachea midline. Non tender CARDIOVASCULAR: Regular rate and rhythm without murmurs, gallops, or rubs. RESPIRATORY: Clear to auscultation. Breath sounds equal bilaterally. No wheezes, rales, or rhonchi. GASTROINTESTINAL: Abdomen soft, non-tender, nondistended. EXTREMITIES: No edema or joint tenderness. BACK: Nontender without deformity or crepitance. No flank tenderness. NEURO: AOx3. Motor functions grossly nonfocal SKIN: No rash or erythema of visible areas Initial Vital Signs Initial Vital Signs: Vital Signs Temperature 97.9 F 06/28/24 14:50 Pulse Rate 90 06/28/24 14:50 Respiratory Rate 20 06/28/24 14:50 Blood Pressure 135/89 06/28/24 14:50 Pulse Oximetry 100 06/28/24 14:50 Oxygen Delivery Method Room Air 06/28/24 14:50 Course Orders Ordered: ED Orders 06/28/24 18:21 CT abdomen pelvis w con Stat Discontinued Medications Famotidine (Famotidine 20 Mg/2 Ml Vial) 20 mg IV NOW KELSIE Last Admin: 06/28/24 19:19 Dose: 20 mg Documented By: Hydromorphone HCl (Hydromorphone 0.5 Mg Inj) 0.5 mg IV NOW ONE Stop: 06/28/24 19:03 Last Admin: 06/28/24 19:20 Dose: 0.5 mg Documented By: Ondansetron HCl (Ondansetron 4 Mg/2 Ml Inj) 4 mg IV NOW PRN PRN Reason: Nausea And Vomiting Ondansetron HCl (Ondansetron 4 Mg Odt) 4 mg PO NOW PRN PRN Reason: Nausea And Vomiting Ondansetron HCl (Ondansetron 4 Mg/2 Ml Inj) 4 mg IV NOW ONE Stop: 06/28/24 19:03 Last Admin: 06/28/24 19:20 Dose: 4 mg Documented By: MR Vital Signs Vital signs: Vital Signs - 8 hr 06/28/24 19:25 06/28/24 19:25 06/28/24 19:30 Pulse Rate 89 88 Respiratory Rate 13 16 Blood Pressure 118/68 Pulse Oximetry 98 93 06/28/24 20:00 Pulse Rate 91 H Respiratory Rate 39 H Blood Pressure Pulse Oximetry 97 Medical Decision Making Lab Data 06/28/24 15:03 06/28/24 15:03 Labs: Lab Results 06/28/24 06/28/24 Range/Units 15:03 17:40 WBC 9.4 (4.5-11.0) X10^3/uL RBC 5.06 (4.0-5.2) X10^6/uL Hgb 14.6 (12.0-16.0) g/dL Hct 42.2 (36-46) % MCV 83.5 (80-100) fL MCH 28.9 (26-34) PG MCHC 34.7 (30-36) % RDW 13.2 (11.6-14.8) % Plt Count 286 (150-400) X10^3/uL Neut % (Auto) 63.5 (50-75) % Lymph % (Auto) 29.4 (25-40) % Cherry % (Auto) 6.5 (3-14) % Eos % (Auto) 0.1 L (2-4) % Baso % (Auto) 0.5 (0-2) % Neut # (Auto) 6000 (0335-9866) /uL Lymph # (Auto) 2800 (9580-7435) /uL Cherry # (Auto) 600 (0-900) /uL Eos # (Auto) 0 (0-450) /uL Baso # (Auto) 100 (0-100) /uL Sodium 138 (137-145) mmol/L Potassium 3.8 (3.4-5.1) mmol/L Chloride 102 (98-107) mmol/L Carbon Dioxide 30 (22-32) mmol/L BUN 14 (7-17) mg/dL Creatinine 0.93 (0.52-1.04) mg/dL Estimated GFR > 60 (>60) mL/min BUN/Creatinine Ratio 15.1 (6-22) Glucose 96 (70-99) mg/dL Calcium 9.7 (8.4-10.2) mg/dL Total Bilirubin 0.4 (0.2-1.3) mg/dL AST 21 (14-36) IU/L ALT 22 (<35) IU/L Alkaline Phosphatase 119 (38-126) U/L Total Protein 7.1 (6.3-8.2) g/dL Albumin 4.1 (3.5-5.0) g/dL Globulin 3.0 (1.7-4.1) g/dL Albumin/Globulin Ratio 1.4 (1.0-2.8) Lipase 226 (23-300) U/L Urine RBC None seen (0-5/HPF) Urine WBC None seen (0-5/HPF) Ur Squamous Epith Cells 0-1 /hpf (0-5/HPF) Amorphous Sediment 4+ Urine Bacteria Few (2-10) H (None) Ur Culture Indicated? Cult not indicated Vol Urine Centrifuged 10ml (spun) Point of Care Testing Test Results Negative Urine Dip Bedside Urine Glucose Negative Bedside Urine Bilirubin - Negative Bedside Urine Ketone - Negative Urine Specific [place] 1.015 Bedside Urine Occult Blood ++ Bedside Urine pH 6.5 Bedside Urine Protein - Negative Bedside Urine Urobilinogen - Negative Bedside Urine Nitrite - Negative Bedside Urine Leukocytes - Negative Esterase Point of care testing: Point of Care Testing Test Results Negative Urine Dip Bedside Urine Glucose Negative Bedside Urine Bilirubin - Negative Bedside Urine Ketone - Negative Urine Specific [place] 1.015 Bedside Urine Occult Blood ++ Bedside Urine pH 6.5 Bedside Urine Protein - Negative Bedside Urine Urobilinogen - Negative Bedside Urine Nitrite - Negative Bedside Urine Leukocytes - Negative Esterase Imaging Data CT scan - abdomen/pelvis: Radiologist's Impression: Close Abdomen/Pelvis CT (Signed) Kip Bradford - 06/28/24 Launch?[address] [address] [address] Scan Report Signed Patient: Jagruti Armstrong MR#: [id number] : 1980 Acct:[id number] Age/Sex: 44 / F Date of Service: 06/28/24 Loc: ED Accession Number: [id number] Procedure: CT abdomen pelvis w con Ordering Provider: Norbert Chang MD PROCEDURE: CT ABDOMEN PELVIS W CON INDICATIONS: HCG neg, severe abd pain TECHNIQUE: After the administration of intravenous contrast, axial sections acquired from the lung bases to the pubic symphysis. Coronal and sagittal reformats were performed. For radiation dose reduction, the following was used: automated exposure control, adjustment of mA and/or kV according to patient size. COMPARISON: Located Within [facility], CT, CT ABDOMEN PELVIS W CON, 06/19/2022, 18:19. FINDINGS: Image quality: Diagnostic. Lower Chest: No significant findings. ABDOMEN: Liver: The liver is diffusely decreased in attenuation without focal mass lesion. Gallbladder: Cholelithiasis. No pericholecystic inflammatory change. Biliary ducts: No biliary dilation. Pancreas: No ductal dilation. Spleen: Size is within normal limits. Adrenal Glands: No adrenal nodules. Kidneys and Ureters: No hydronephrosis. No solid mass. No complex renal cystic lesion which requires follow up. Stomach and Bowel: Normal colonic caliber, without significant wall thickening. Peritoneum: No abnormal intraperitoneal fluid. No free air. Ventral Wall: No significant ventral hernia. Abdominal Nodes: No retroperitoneal or mesenteric adenopathy by size criteria. Vessels: Aorta and inferior vena cava are normal in size. PELVIS: Pelvic Organs: Bilateral ovarian cysts measure up to 5 cm on the left. No free fluid Bladder: No bladder wall thickening, accounting for underdistention. Pelvic Nodes: No enlarged lymph nodes. Miscellaneous: No inguinal hernias are seen. Bones: No aggressive osseous abnormality. IMPRESSION: No acute CT findings in the abdomen and pelvis Cholelithiasis without evidence of acute cholecystitis Left ovarian cyst. No free fluid Approved by: Kip Bradford M.D. on 06/28/2024 at 18:04 ECG Data Interpretation: Normal sinus rhythm with rate of 81, no obvious ST segment elevation or depression changes. NV 158, QRS 86, QTC 450. MDM Narrative Medical decision making narrative: 44-year-old female with epigastric area discomfort. Severe, no treatment tried. Afebrile, sirs screen negative. Mild tenderness epigastrium, not particularly tender right upper quadrant or remainder of abdominal regions. No obvious ventral hernia. Labs pending. Labs unremarkable. Patient is still having pain, IV Dilaudid dose. CT abdomen and pelvis ordered. CT abdomen and pelvis with IV contrast. Impressions: ?No acute CT findings in the abdomen and pelvis. Cholelithiasis without evidence of acute cholecystitis. Left ovarian cyst. No free fluid. ? See radiology report. Patient having improved symptoms, IV Pepcid additionally given. Follow up as an outpatient for now, outpatient general surgery consult if cholelithiasis causing any upper abdominal pain. Advised trial of [id number] omeprazole. Discharge Plan Departure Patient Disposition: Home Clinical Impression: Epigastric abdominal pain, Cholelithiasis Activity Restrictions/Additional Instructions: Upper abdominal discomfort, no fever, some mild tenderness in the epigastrium. CT scanning suggestive of cholelithiasis (gallstones in the gallbladder, but no acute inflammatory changes within the gallbladder, no obstructive changes on laboratory studies or imaging of the common bile duct at this time. Incidental left ovarian cyst also noted, does not seem to anatomically related to your current pain symptoms. You could also be having acid related problems such as gastritis or inflammation like a stomach ulcer, consider [id number] omeprazole antacid for now. Consider referral for surgical consultation if your gallbladder is causing your symptoms, for elective cholecystectomy consultation as an outpatient for now. Contact information given for local general surgery. Recheck symptoms with your regular provider in the next few days if not improved. Return to this/nearest emergency department for any change worsening symptoms or any concerns prior. Prescriptions: No Action zolpidem 5 mg tablet 10 mg PO Patient Comments: I take 1 to 2 tablets as needed to help me sleep. I do not take it every night. vilazodone 40 mg tablet 40 mg PO DAILY bupropion HCl 300 mg tablet extended release 24 hr 300 mg PO DAILY bupropion HCl 150 mg tablet extended release 24 hr 150 mg PO DAILY aripiprazole 2 mg tablet 2 mg PO DAILY dextroamphetamine-amphetamine 20 mg tablet 40 mg PO BID metformin 500 mg tablet 500 mg PO BID Qty: 60 3RF cephalexin 500 mg capsule 500 mg PO TID Qty: 21 0RF oxycodone 5 mg tablet 5 mg PO Q8H PRN (Reason: pain) Qty: 10 0RF gabapentin 300 mg capsule 300 mg PO ONCE PM Qty: 30 2RF amlodipine 5 mg tablet 5 mg PO DAILY Qty: 30 5RF hydrochlorothiazide 12.5 mg tablet 12.5 mg PO DAILY Qty: 30 5RF norethindrone-e.estradiol-iron [[place] Fe 1-20 EQ (28)] 1 mg-20 mcg (21)/75 mg (7) tablet 1 tab PO DAILY Qty: 84 3RF fluconazole 150 mg tablet 150 mg PO Q3D Qty: 2 0RF Referrals: Yonny Bello MD [Physician] - Stand Alone Forms: Patient Portal/API/Survey
[2024-06-28] MEDS: FAMOTIDINE 20 MG/2 ML VIAL IV (19:19)
[2024-06-28] MEDS: ONDANSETRON 4 MG/2 ML INJ IV (19:20)
[2024-06-28] MEDS: HYDROMORPHONE 0.5 MG INJ IV (19:20)
== END 2024-06-28 20:21 | disposition home or self-care (01) ==
PROVIDERS: Emergency Medicine; Emergency Provider Emergency Medicine
DX: K80.20 Calculus of gallbladder without cholecystitis without obstruction (principal); R10.13 Epigastric pain; R11.0 Nausea
CPT/HCPCS: 36415; 74177; 80053; 81003; 81015; 81025; 83690; 85025; 93005; 96374; 96375; 99284; J1171; J2405; Q9967

== ENCOUNTER → 2025-02-05 13:17 | Outpatient (CLI) | payer OTHER, SELFPAY ==
--- NOTE | 2025-02-05 13:18 | DI.MG.S_ITS ---
MM diagnostic mammo BI, US breast RT limited: 02/05/2025 BI-RADS: 2 CLINICAL: 44-year old female for bilateral diagnostic mammogram and right diagnostic breast ultrasound. Tyrer-Cuzick lifetime risk of 12.6%. No personal or first- degree family history of breast cancer. The patient reports a palpable abnormality (1 month) in the right breast. PRIOR EXAMS 06/28/2023, 02/21/2023, 01/19/2023. MAMMOGRAPHY TECHNIQUE: 2D and 3D (tomosynthesis) digital mammographic views obtained, with additional images as needed for full coverage. Current study was also evaluated with a Computer Aided Detection (CAD) system. ULTRASOUND TECHNIQUE: TARGETED Right Breast Ultrasound: Real-time ultrasound exam was performed focused to area of clinical and/or imaging concern. Real-time hunt scale and color doppler imaging of the area of clinical interest was performed with image documentation. DENSITY C. The breasts are heterogeneously dense, which may obscure small masses. MAMMOGRAPHY FINDINGS Right (finding-1): Upper Central, Middle depth: Underlying surface marker and correlating with palpable lump there are multiple circumscribed, oval, equal- density masses present. The largest oval mass measures approximately 1.7 cm. Left: No suspicious mass, asymmetry, microcalcification, or other abnormality seen. ULTRASOUND FINDINGS Right (finding-1): Upper Inner at 12:30, 5 cm from nipple: Underlying surface marker and correlating with palpable lump and also with findings on mammogram, there are multiple simple anechoic cysts showing posterior acoustic enhancement. Doppler shows no vascularity. The largest cyst measures 1.7 x 1 x 1.6 cm. IMPRESSION: Right * No evidence of malignancy with benign findings. Left * No evidence of malignancy. RECOMMENDATIONS Bilateral * Annual screening mammography. COMMENTS: Findings and recommendations were conveyed to the patient during today's evaluation. OVERALL ASSESSMENT CATEGORY BI-RADS-2: Benign. The [employer] recommends annual screening mammography beginning at age 40 for women with average risk of breast cancer. ELECTRONICALLY SIGNED: Paulina Aburto M.D. on 02/05/2025 at 03:31:00 PM PT Interpreting Station ID: [id number]
== END ==
LOC: MAMMO 13:18
PROVIDERS: PCP Family Medicine; Referring Provider Family Medicine; Visit Provider Family Medicine
DX: N63.10 Unspecified lump in the right breast, unspecified quadrant (principal); N60.01 Solitary cyst of right breast; R92.333 Mammographic heterogeneous density, bilateral breasts
CPT/HCPCS: 76642; 77066; G0279

== ENCOUNTER → 2025-02-13 08:10 | Outpatient (CLI) | payer OTHER, SELFPAY ==
[2025-02-13 10:30] LABS: Alanine Aminotransferase 14 IU/L (<35); Albumin 4.1 g/dL (3.5-5.0); Albumin Globulin Ratio 1.4 (1.0-2.8); Alkaline Phosphatase 116 U/L (38-126); Blood Urea Nitrogen 11 mg/dL (7-17); Calcium 9.9 mg/dL (8.4-10.2); Carbon Dioxide 23 mmol/L (22-32); Chloride 109 mmol/L (98-107); Estimated Glomerular Filt Rate > 60 mL/min (>60); Globulin 2.9 g/dL (1.7-4.1); Glucose 108 mg/dL (70-99); HEMOLYSIS < 15 (0-50); Potassium 5.2 mmol/L (3.4-5.1); Sodium 143 mmol/L (137-145); Total Protein 7.0 g/dL (6.3-8.2)
[2025-02-13 11:00] LABS: Thyroid Stimulating Hormone 2.77 uIU/mL (0.47-4.68)
[2025-02-13 12:59] LABS: Add Manual Diff / Slide Review NO; Hematocrit 44.6 % (36-46); Hemoglobin 15.2 g/dL (12.0-16.0); Lymphocytes Absolute Auto 2100 /uL (1100-4500); Mean Corpuscular HGB Conc 34.1 % (30-36); Mean Corpuscular Hemoglobin 29.0 PG (26-34); Mean Corpuscular Volume 85.1 fL (80-100); Platelet Count 293 X10^3/uL (150-400)
[2025-02-13 17:18] LABS: Hemoglobin A1C% w Est Avg Glu 5.3 % (4.0-6.0)
== END ==
PROVIDERS: PCP Family Medicine; Referring Provider Family Medicine; Visit Provider Family Medicine
DX: R73.03 Prediabetes (principal); R53.83 Other fatigue
CPT/HCPCS: 36415; 80053; 83036; 84443; 85025

== ENCOUNTER → 2025-02-24 09:29 | Outpatient (CLI) | payer OTHER, SELFPAY ==
[2025-02-24 10:50] LABS: Blood Urea Nitrogen 12 mg/dL (7-17); Calcium 9.3 mg/dL (8.4-10.2); Carbon Dioxide 23 mmol/L (22-32); Chloride 110 mmol/L (98-107); Estimated Glomerular Filt Rate > 60 mL/min (>60); Glucose 101 mg/dL (70-99); HEMOLYSIS < 15 (0-50); Potassium 4.6 mmol/L (3.4-5.1); Sodium 140 mmol/L (137-145)
== END ==
PROVIDERS: PCP Family Medicine; Referring Provider Family Medicine; Visit Provider Family Medicine
DX: I10 Essential (primary) hypertension (principal); E66.9 Obesity, unspecified; R73.03 Prediabetes
CPT/HCPCS: 36415; 80048